=== PATIENT | male | born 1990 | race Caucasian/White ===

== ENCOUNTER 2020-04-13 21:42 | Emergency (ER) | payer SELFPAY ==
[~2020-04-13] VITALS: Ht 172.7 cm; Wt 73.0 kg
[2020-04-13 22:08] VITALS: BP 136/88
[2020-04-13] MEDS ORDERED: SODIUM CHLORIDE 0.9% 1,000 ML IV ONE (23:10)
[2020-04-13] MEDS ORDERED: ONDANSETRON HCL 4MG/2ML INJ IV STA (23:10)
[2020-04-13 23:37] LABS: BASOPHILS % 0.5 % (0.0-2.0); CHLORIDE 104 mEq/L (98-107); EOSINOPHILS % 1.4 % (0.0-5.0); HEMATOCRIT. 36.4 % (42.0-52.0); HEMOGLOBIN. 12.7 g/dL (14.0-18.0); LYMPHOCYTES % 22.5 % (20.0-50.0); MEAN CORPUSCULAR HEMOGLOBIN 30.4 pg (28.0-32.0); MEAN CORPUSCULAR VOLUME 87.1 fL (80.0-94.0); MEAN PLATELET VOLUME 7.7 fl (7.4-10.4); MONOCYTES % 6.6 % (2.0-8.0); PLATELET 320 x1000/uL (130-400); RED BLOOD CELL COUNT 4.18 mill/uL (4.7-6.1); RED CELL DISTRIBUTION WIDTH 13.3 % (11.6-14.6)
[2020-04-13 23:42] LABS: ETHANOL BLOOD < 10 mg/dL
== END 2020-04-14 00:08 | disposition left against medical advice (07) ==
LOC: ER 21:42
DX: F91.8 Other conduct disorders (principal); F10.10 Alcohol abuse, uncomplicated; Y90.0 Blood alcohol level of less than 20 mg/100 ml
CPT/HCPCS: 36415; 80053; 80320; 84484; 85025; 93005; 99284; J7030; G0480

== ENCOUNTER 2021-05-14 11:30 | Emergency (ER) | payer MEDICAID, OTHER ==
[~2021-05-14] VITALS: Ht 160 cm; Wt 61.0 kg
[2021-05-14] MEDS ORDERED: DIPHENHYDRAMINE 50MG CAPSULE PO STA (12:03)
[2021-05-14] MEDS ORDERED: HALOPERIDOL LACTATE 5MG/ML VIAL IM ONE (13:00)
[2021-05-14] MEDS ORDERED: DIPHENHYDRAMINE 50MG/ML VIAL IV ONE (13:00)
[2021-05-14 13:34] LABS: BASOPHILS % 0.4 % (0.0-2.0); CLARITY URINE CLEAR (CLEAR); COLOR URINE YELLOW (YELLOW); EOSINOPHILS % 0.5 % (0.0-5.0); HEMATOCRIT. 44.4 % (42.0-52.0); HEMOGLOBIN. 14.7 g/dL (14.0-18.0); KETONES URINE NEGATIVE (NEGATIVE); LEUKOCYTE ESTERASE URINE NEGATIVE (NEGATIVE); LYMPHOCYTES % 21.8 % (20.0-50.0); MEAN CORPUSCULAR VOLUME 90.8 fL (80.0-94.0); MEAN PLATELET VOLUME 8.4 fl (7.4-10.4); MONOCYTES % 9.4 % (2.0-8.0); NEUTROPHILS % 67.9 % (40.0-76.0); NITRITE URINE NEGATIVE (NEGATIVE); OCCULT BLOOD URINE NEGATIVE (NEGATIVE); PLATELET 355 x1000/uL (130-400); PROTEIN URINE NEGATIVE (NEGATIVE); RED BLOOD CELL COUNT 4.89 mill/uL (4.7-6.1); RED CELL DISTRIBUTION WIDTH 13.4 % (11.6-14.6); SPECIFIC GRAVITY URINE 1.006 (1.005-1.030); UROBILINOGEN URINE 0.2 E.U./dL (0.2-1.0)
[2021-05-14 13:39] LABS: CHLORIDE 109 mEq/L (98-107)
[2021-05-14 13:46] LABS: ETHANOL BLOOD < 10 mg/dL
[2021-05-14 13:48] LABS: METHADONE URINE SCREEN NEGATIVE (NEGATIVE); OPIATES URINE SCREEN NEGATIVE (NEGATIVE)
[2021-05-14 13:49] LABS: *AMPHETAMINES SCREEN URINE NEGATIVE (NEGATIVE); *BARBITURATES SCREEN URINE NEGATIVE (NEGATIVE); *BENZODIAZEPINES SCREEN URINE NEGATIVE (NEGATIVE); *COCAINE SCREEN URINE NEGATIVE (NEGATIVE); CANNABINOID URINE SCREEN NEGATIVE (NEGATIVE); PHENCYCLIDINE URINE SCREEN NEGATIVE (NEGATIVE)
[2021-05-14] MEDS ORDERED: DIPHENHYDRAMINE 50MG/ML VIAL IV PRN (16:00)
[2021-05-14] MEDS ORDERED: OLANZAPINE 10MG TABLET PO SCH (16:00)
[2021-05-14] MEDS ORDERED: LORAZEPAM 2MG/ML CPJ IV NR (16:30)
[2021-05-14] MEDS: DULOXETINE HCL 60MG DR CAPSULE PO SCH (16:51)
[2021-05-14] MEDS ORDERED: DIVALPROEX SODIUM 250MG ER TABLET PO SCH (21:00)
[2021-05-14] MEDS ORDERED: HALOPERIDOL 5MG TABLET PO SCH (21:00)
[2021-05-14] MEDS: DIVALPROEX SODIUM 500MG DR TABLET PO SCH (22:04)
[2021-05-15] MEDS: HALOPERIDOL LACTATE 5MG/ML VIAL IM PRN ×2 (01:42→13:56)
[2021-05-15] MEDS: LORAZEPAM 2MG/ML CPJ IM PRN ×2 (02:40→13:55)
[2021-05-15] MEDS ORDERED: LORAZEPAM 2MG/ML CPJ IV ONE (04:15)
[2021-05-15] MEDS: DIVALPROEX SODIUM 500MG DR TABLET PO SCH (09:05)
[2021-05-15] MEDS: DULOXETINE HCL 60MG DR CAPSULE PO SCH (09:05)
[2021-05-15] MEDS ORDERED: HAL5 MT (13:31)
[2021-05-15] MEDS ORDERED: DULO60CA44 MT (13:31)
[2021-05-15] MEDS ORDERED: OLAN10TA72 PO (13:31)
[2021-05-15] MEDS ORDERED: DIVA500T3 MT (13:31)
[2021-05-15 14:00] VITALS: BP 135/59
== END 2021-05-15 14:12 ==
LOC: ER 12:22
DX: R45.851 Suicidal ideations (principal); F32.9 Major depressive disorder, single episode, unspecified; F20.9 Schizophrenia, unspecified; Z20.822 Contact with and (suspected) exposure to COVID-19
CPT/HCPCS: 36415; 80053; 80305; 80307; 80320; 80329; 81003; 85025; 87426; 93005; 96372; 96374; 96375; 96376; 99285; C9803; J1200; J1630; J2060; U0003; U0005; G0480